=== PATIENT | female | born 1965 | race Caucasian/White ===

== ENCOUNTER 2018-12-06 19:30 | Emergency (ER) | payer BC ==
[2018-12-06 19:54] VITALS: BP 173/86; PULSE 67
[2018-12-06] MEDS ORDERED: Ketorolac 30 MG/ML SDV IVPUSH ONE (19:55)
[2018-12-06] MEDS ORDERED: Sodium Chloride 0.9% 10 ML Syringe FLUSH PRN (19:55)
[2018-12-06] MEDS ORDERED: Ondansetron 4 MG/2 ML SDV IVPUSH ONE (19:55)
[2018-12-06] MEDS ORDERED: Sodium Chloride 0.9% 1,000 ML IV ONE (19:55)
[2018-12-06] MEDS ORDERED: diphenhydrAMINE 50 MG/ML SDV IVPUSH ONE (19:55)
--- NOTE | 2018-12-06 19:56 | EDM.PDOC ---
ED HPI GENERAL MEDICAL PROBLEM - General Chief Complaint: Headache Stated Complaint: migraine Time Seen by Provider: 12/06/18 19:40 Source of Information: Reports: Patient History Limitations: Reports: No Limitations - History of Present Illness INITIAL COMMENTS - FREE TEXT/NARRATIVE: 53 YO WF presents to ER complaining of migraine headache which began yesterday. Pt reports her headache began as right sided behind her right eye and has progressed to hurting all over today. Pt reports taking her Maxalt, Zofran and Gabapentin which was prescribed for her chronic migraines by neurologist without relief. Pt reports she vomited today prompting ER visit. Pt denies neck pain, focal neurological deficits or fever/chills. Onset Date: 12/05/18 Duration: Day(s): (2) Location: Reports: Head Quality: Reports: Ache Severity: Moderate Worsens with: Reports: None Associated Symptoms: Reports: Headaches, Nausea/Vomiting. Denies: Confusion, Fever/Chills, Seizure, Syncope, Weakness Treatments [employer]: Reports: Other Medication(s) Headache Pain Score (Numeric/FACES): 9 - Related Data Allergies Allergy/AdvReac Type Severity Reaction Status Date / Time amoxicillin Allergy Hives Verified 12/06/18 19:55 sulfamethoxazole Allergy Hives Verified 12/06/18 19:55 [From Bactrim] trimethoprim [From Bactrim] Allergy Hives Verified 12/06/18 19:55 Home Meds: Home Meds Acetaminophen/Caffeine [Excedrin Tension Headache] 2 tab PO ASDIRECTED PRN 03/05 [History] Albuterol [Proventil HFA] 2 puff INH Q4H PRN 03/05/15 [History] Escitalopram [Lexapro] 10 mg PO DAILY 03/05/15 [History] Furosemide 20 mg PO DAILY PRN 03/05/15 [History] Levothyroxine 125 mcg PO ACBREAKFAST 03/05/15 [History] Levothyroxine [Sythroid] 100 mcg PO ACBREAKFAST 03/05/15 [History] Naproxen Sodium [Aleve] 220 mg PO BID PRN 03/05/15 [History] Ondansetron [Zofran] 8 mg PO Q8H PRN 03/05/15 [History] Rizatriptan [Maxalt HONING MACHINE [employer]Y OUT SETTER] 10 mg PO ASDIRECTED PRN 03/05/15 [History] ClonazePAM [KlonoPIN] 0.5 mg PO BEDTIME 12/06/18 [History] Cyanocobalamin (Vitamin B-12) [Vitamin B-12] 100 mcg PO DAILY 12/06/18 [History] DULoxetine [Cymbalta] 60 mg PO DAILY 12/06/18 [History] Erenumab-Aooe [Aimovig Autoinjector] 70 mg SUBCUT Q28D 12/06/18 [History] Gabapentin [Neurontin] 600 mg PO BID PRN 12/06/18 [History] Gabapentin [Neurontin] 900 mg PO DAILY@1900 12/06/18 [History] Magnesium Citrate 400 Mg. 600 mg PO DAILY 12/06/18 [History] Multivitamin with Minerals [Multiple Vitamin] 1 tab PO DAILY 12/06/18 [History] Past Medical History - Past Surgical History Other HEENT Surgeries/Procedures: wisdom teeth removal Other GI Surgeries/Procedures: hemorrhoid surgery ED ROS GENERAL - Review of Systems Review Of Systems: See Below Constitutional: Reports: No Symptoms HEENT: Denies: Ear Pain, Eye Pain, Hearing Loss, Vertigo, Vision Change Respiratory: Reports: No Symptoms Cardiovascular: Reports: No Symptoms Endocrine: Reports: No Symptoms GI/Abdominal: Reports: No Symptoms : Reports: No Symptoms Musculoskeletal: Reports: No Symptoms Skin: Reports: No Symptoms Neurological: Reports: Headache. Denies: Confusion, Dizziness, Numbness, Paresthesia, Trouble Speaking, Difficulty Walking, Weakness, Change in Speech Psychiatric: Reports: No Symptoms Hematologic/Lymphatic: Reports: No Symptoms Immunologic: Reports: No Symptoms - Physical Exam Exam: See Below Exam Limited By: No Limitations General Appearance: Alert, WD/WN, No Apparent Distress Throat/Mouth: Normal Inspection, Normal Lips, Normal Teeth, Normal Gums, Normal Oropharynx, Normal Voice, No Airway Compromise Head Exam: Atraumatic, Normocephalic Neck: Normal Inspection, Supple, Non-Tender, Full Range of Motion Respiratory/Chest: No Respiratory Distress, Lungs Clear, Normal Breath Sounds, No Accessory Muscle Use, Chest Non-Tender Cardiovascular: Normal Peripheral Pulses, Regular Rate, Rhythm, No Edema, No Gallop, No JVD, No Murmur, No Rub GI/Abdominal: Normal Bowel Sounds, Soft, Non-Tender, No Organomegaly, No Distention, No Abnormal Bruit, No Mass Neuro Exam (Abbreviated): Alert, Oriented, CN II-XII Intact, Normal Cognition, Normal Gait, Normal Reflexes, No Motor/Sensory Deficits Back Exam: Normal Inspection, Full Range of Motion, NT Extremities: Normal Inspection, Normal Range of Motion, Non-Tender, No Pedal Edema, Normal Capillary Refill Psychiatric: Normal Affect, Normal Mood Skin Exam: Warm, Dry, Intact, Normal Color, No Rash Course - Vital Signs Last Recorded V/S: Last Vital Signs Temp 36.9 C 12/06/18 19:42 Pulse 67 12/06/18 19:42 Resp 20 12/06/18 19:42 BP 173/86 H 12/06/18 19:42 Pulse Ox 95 12/06/18 19:42 - Orders/Labs/Meds Orders: Active Orders 24 hr Category Date Time Status Peripheral IV Care [RC] . DIRECTED Care 12/06/18 19:56 Active Sodium Chloride 0.9% [Saline Flush] Med 12/06/18 19:55 Active 10 ml FLUSH Q8HR PRN Peripheral IV Insertion Adult [OM.PC] Routine Oth 12/06/18 19:55 Ordered Medication Orders Sodium Chloride (Saline Flush) 10 ml FLUSH Q8HR PRN PRN Reason: keep vein open Meds: Medications Generic Name Dose Route Start Last Admin Trade Name Freq PRN Reason Stop Dose Admin Sodium Chloride 10 ml 12/06/18 19:55 Saline Flush FLUSH Q8HR PRN keep vein open Discontinued Medications Generic Name Dose Route Start Last Admin Trade Name Freq PRN Reason Stop Dose Admin Diphenhydramine HCl 50 mg 12/06/18 19:55 12/06/18 20:21 Benadryl IVPUSH 12/06/18 19:56 50 mg ONETIME ONE Administration Sodium Chloride 1,000 mls @ 999 mls/hr 12/06/18 19:55 12/06/18 20:17 Normal Saline IV 12/06/18 20:55 999 mls/hr .BOLUS ONE Administration Ketorolac Tromethamine 30 mg 12/06/18 19:55 12/06/18 20:18 Toradol IVPUSH 12/06/18 19:56 30 mg ONETIME ONE Administration Ondansetron HCl 4 mg 12/06/18 19:55 12/06/18 20:17 Zofran IVPUSH 12/06/18 19:56 4 mg ONETIME ONE Administration - Re-Assessments/Exams Free Text/Narrative Re-Assessment/Exam: 12/06/18 21:12 Pt reports pain is improved and would like to go home. Pt reports she will continue her home medications as needed and follow up with neurologist for further evaluation and treatment Departure - Departure Time of Disposition: 21:14 Disposition: Home, Self-Care 01 Condition: Good Clinical Impression: Migraine - Discharge Information Instructions: Recurrent Migraine Headache, [id number] Referrals: Mckenzie Martin MD [Physician] - Forms: ED Department Discharge Additional Instructions: 1. Discharge home 2. continue home medications as directed by your neurologist 3. follow up with neuro for further evaluation and treatment 4. return to ER for worsening symptoms 5. stay hydrated and rest - My Orders Last 24 Hours: My Active Orders 12/06/18 19:55 Sodium Chloride 0.9% [Saline Flush] 10 ml FLUSH Q8HR PRN Peripheral IV Insertion Adult [OM.PC] Routine 12/06/18 19:56 Peripheral IV Care [RC] . DIRECTED - Assessment/Plan Last 24 Hours: My Active Orders 12/06/18 19:55 Sodium Chloride 0.9% [Saline Flush] 10 ml FLUSH Q8HR PRN Peripheral IV Insertion Adult [OM.PC] Routine 12/06/18 19:56 Peripheral IV Care [RC] . DIRECTED Assessment:: 1. Migraine MOLINA Plan: 1. Discharge home 2. continue home medications as directed by your neurologist 3. follow up with neuro for further evaluation and treatment 4. return to ER for worsening symptoms 5. stay hydrated and rest
== END 2018-12-06 21:30 | disposition home or self-care (01) ==
LOC: KA.ED 19:30
DX: G43.909 Migraine, unspecified, not intractable, without status migrainosus (principal); Z88.1 Allergy status to other antibiotic agents; Z79.899 Other long term (current) drug therapy
CPT/HCPCS: 96361; 96374; 96375; 99282; J1200; J1885; J2405; J7030

== ENCOUNTER 2018-12-08 06:16 | Emergency (ER) | payer BC ==
[2018-12-08] MEDS ORDERED: Ondansetron 4 MG/2 ML SDV IVPUSH ONE (06:20)
[2018-12-08 06:26] VITALS: BP 138/63; PULSE 80
[2018-12-08] MEDS ORDERED: Ondansetron 4 MG/2 ML SDV ONE (06:47)
[2018-12-08] MEDS ORDERED: Metoclopramide 10 MG/2 ML SDV IVPUSH ONE (06:49)
[2018-12-08] MEDS ORDERED: diphenhydrAMINE 50 MG/ML SDV IVPUSH ONE (06:49)
[2018-12-08] MEDS ORDERED: Sodium Chloride 0.9% 1,000 ML IV ONE (06:49)
[2018-12-08] MEDS ORDERED: Sodium Chloride 0.9% 10 ML Syringe FLUSH PRN (06:49)
[2018-12-08] MEDS ORDERED: Ketorolac 30 MG/ML SDV IVPUSH ONE (06:49)
--- NOTE | 2018-12-08 06:51 | EDM.PDOC ---
ED HPI GENERAL MEDICAL PROBLEM - General Chief Complaint: Headache Stated Complaint: migraine Time Seen by Provider: 12/08/18 06:40 Source of Information: Reports: Patient History Limitations: Reports: No Limitations - History of Present Illness INITIAL COMMENTS - FREE TEXT/NARRATIVE: 53 YO WF presents to ER with recurrent migraine MOLINA. Pt was seen in ER 2 days ago for same complaint. Pt reports she felt better after visit although headache never completely resolved. Pt went to work last night and headache returned and was unrelieved by her home Maxalt. Pt had an appointment with neurology yesterday in [place] which she decided not to go due to drive and not feeling well enough to make the trip. Pt reports her headache began again as behind her right eye and has progressed in severity. Pt reports nausea without vomiting today. Pt denies neck pain, URI symptoms or focal neurological deficits , no fever/chills. Onset: Today Location: Reports: Head Quality: Reports: Ache Severity: Moderate Improves with: Reports: None Worsens with: Reports: None Associated Symptoms: Reports: Headaches - Related Data Allergies Allergy/AdvReac Type Severity Reaction Status Date / Time amoxicillin Allergy Hives Verified 12/08/18 06:21 sulfamethoxazole Allergy Hives Verified 12/08/18 06:21 [From Bactrim] trimethoprim [From Bactrim] Allergy Hives Verified 12/08/18 06:21 Home Meds: Home Meds Acetaminophen/Caffeine [Excedrin Tension Headache] 2 tab PO ASDIRECTED PRN 03/05 [History] Albuterol [Proventil HFA] 2 puff INH Q4H PRN 03/05/15 [History] Escitalopram [Lexapro] 10 mg PO DAILY 03/05/15 [History] Furosemide 20 mg PO DAILY PRN 03/05/15 [History] Levothyroxine 125 mcg PO ACBREAKFAST 03/05/15 [History] Levothyroxine [Sythroid] 100 mcg PO ACBREAKFAST 03/05/15 [History] Naproxen Sodium [Aleve] 220 mg PO BID PRN 03/05/15 [History] Ondansetron [Zofran] 8 mg PO Q8H PRN 03/05/15 [History] Rizatriptan [Maxalt PUBLIC HEALTH EDUCATOR] 10 mg PO ASDIRECTED PRN 03/05/15 [History] ClonazePAM [KlonoPIN] 0.5 mg PO BEDTIME 12/06/18 [History] Cyanocobalamin (Vitamin B-12) [Vitamin B-12] 100 mcg PO DAILY 12/06/18 [History] DULoxetine [Cymbalta] 60 mg PO DAILY 12/06/18 [History] Erenumab-Aooe [Aimovig Autoinjector] 70 mg SUBCUT Q28D 12/06/18 [History] Gabapentin [Neurontin] 600 mg PO BID PRN 12/06/18 [History] Gabapentin [Neurontin] 900 mg PO DAILY@1900 12/06/18 [History] Magnesium Citrate 400 Mg. 600 mg PO DAILY 12/06/18 [History] Multivitamin with Minerals [Multiple Vitamin] 1 tab PO DAILY 12/06/18 [History] Past Medical History - Past Health History Medical/Surgical History: Denies Medical/Surgical History - Past Surgical History Other HEENT Surgeries/Procedures: wisdom teeth removal Other GI Surgeries/Procedures: hemorrhoid surgery Social & Family History - Caffeine Use Caffeine Use: Reports: Coffee, Soda, Tea ED ROS GENERAL - Review of Systems Review Of Systems: See Below Constitutional: Denies: Fever, Chills HEENT: Reports: No Symptoms Respiratory: Reports: No Symptoms Cardiovascular: Reports: No Symptoms Endocrine: Reports: No Symptoms GI/Abdominal: Reports: Nausea : Reports: No Symptoms Musculoskeletal: Reports: No Symptoms Skin: Reports: No Symptoms Neurological: Reports: Headache Psychiatric: Reports: No Symptoms Hematologic/Lymphatic: Reports: No Symptoms Immunologic: Reports: No Symptoms - Physical Exam Exam: See Below Exam Limited By: No Limitations General Appearance: Alert, WD/WN, No Apparent Distress Eye Exam: Bilateral Eye: EOMI, PERRL Nose: Normal Inspection, Normal Mucosa, No Blood Throat/Mouth: Normal Inspection, Normal Lips, Normal Teeth, Normal Gums, Normal Oropharynx, Normal Voice, No Airway Compromise Head Exam: Atraumatic, Normocephalic Neck: Normal Inspection, Supple, Non-Tender, Full Range of Motion Respiratory/Chest: No Respiratory Distress, Lungs Clear, Normal Breath Sounds, No Accessory Muscle Use, Chest Non-Tender Cardiovascular: Normal Peripheral Pulses, Regular Rate, Rhythm, No Edema, No Gallop, No JVD, No Murmur, No Rub GI/Abdominal: Normal Bowel Sounds, Soft, Non-Tender, No Organomegaly, No Distention, No Abnormal Bruit, No Mass Neuro Exam (Abbreviated): Alert, Oriented, CN II-XII Intact, Normal Cognition, Normal Gait, Normal Reflexes, No Motor/Sensory Deficits Extremities: Normal Inspection, Normal Range of Motion, Non-Tender, No Pedal Edema, Normal Capillary Refill Psychiatric: Normal Affect, Normal Mood Skin Exam: Warm, Dry, Intact, Normal Color, No Rash Course - Vital Signs Last Recorded V/S: Last Vital Signs Temp 35.8 C 12/08/18 06:22 Pulse 80 12/08/18 06:22 Resp 20 12/08/18 06:22 BP 138/63 12/08/18 06:22 Pulse Ox 96 12/08/18 06:22 - Orders/Labs/Meds Orders: Active Orders 24 hr Category Date Time Status Peripheral IV Care [RC] . DIRECTED Care 12/08/18 06:49 Active Sodium Chloride 0.9% [Normal Saline] 1,000 ml Med 12/08/18 06:49 Active IV .BOLUS Sodium Chloride 0.9% [Saline Flush] Med 12/08/18 06:49 Active 10 ml FLUSH Q8HR PRN Peripheral IV Insertion Adult [OM.PC] Routine Oth 12/08/18 06:49 Ordered Medication Orders Sodium Chloride (Normal Saline) 1,000 mls @ 999 mls/hr IV .BOLUS ONE Stop: 12/08/18 07:49 Last Admin: 12/08/18 07:07 Dose: 999 mls/hr Sodium Chloride (Saline Flush) 10 ml FLUSH Q8HR PRN PRN Reason: keep vein open Meds: Medications Generic Name Dose Route Start Last Admin Trade Name Freq PRN Reason Stop Dose Admin Sodium Chloride 1,000 mls @ 999 mls/hr 12/08/18 06:49 12/08/18 07:07 Normal Saline IV 12/08/18 07:49 999 mls/hr .BOLUS ONE Administration Sodium Chloride 10 ml 12/08/18 06:49 Saline Flush FLUSH Q8HR PRN keep vein open Discontinued Medications Generic Name Dose Route Start Last Admin Trade Name Freq PRN Reason Stop Dose Admin Diphenhydramine HCl 50 mg 12/08/18 06:49 12/08/18 07:08 Benadryl IVPUSH 12/08/18 06:50 50 mg ONETIME ONE Administration Ketorolac Tromethamine 30 mg 12/08/18 06:49 12/08/18 07:03 Toradol IVPUSH 12/08/18 06:50 30 mg ONETIME ONE Administration Lorazepam 1 mg 12/08/18 07:24 Ativan IVPUSH 12/08/18 07:25 ONETIME ONE Metoclopramide HCl 10 mg 12/08/18 06:49 Reglan IVPUSH 12/08/18 06:50 ONETIME ONE Ondansetron HCl Confirm 12/08/18 06:47 Zofran Administered 12/08/18 06:48 Dose 4 mg .ROUTE .STK-MED ONE Ondansetron HCl 4 mg 12/08/18 06:20 Zofran IVPUSH 12/08/18 06:21 ONETIME ONE - Radiology Interpretation Free Text/Narrative:: Pt reports pain and nausea improved and wants to go home. Pt instructed to avoid environmental triggers like lack of sleep and dehydration. Pt alert and oriented x 4 and in NAD Departure - Departure Time of Disposition: 07:48 Disposition: Home, Self-Care 01 Condition: Good Clinical Impression: Migraine - Discharge Information Instructions: Recurrent Migraine Headache, [id number] Referrals: Mckenzie Martin MD [Physician] - Forms: ED Department Discharge Additional Instructions: 1. discharge home 2. recommend calling neurologist for further recommendations and follow up for further evaluation and treatment 3. continue home medications as directed by Neuro 4. return to ER for worsening symptoms - My Orders Last 24 Hours: My Active Orders 12/08/18 06:49 Peripheral IV Care [RC] . DIRECTED Sodium Chloride 0.9% [Normal Saline] 1,000 ml IV .BOLUS Sodium Chloride 0.9% [Saline Flush] 10 ml FLUSH Q8HR PRN Peripheral IV Insertion Adult [OM.PC] Routine - Assessment/Plan Last 24 Hours: My Active Orders 12/08/18 06:49 Peripheral IV Care [RC] . DIRECTED Sodium Chloride 0.9% [Normal Saline] 1,000 ml IV .BOLUS Sodium Chloride 0.9% [Saline Flush] 10 ml FLUSH Q8HR PRN Peripheral IV Insertion Adult [OM.PC] Routine Assessment:: 1. Chronic Migraine headaches Plan: 1. discharge home 2. recommend calling neurologist for further recommendations and follow up for further evaluation and treatment 3. continue home medications as directed by Neuro 4. return to ER for worsening symptoms
[2018-12-08] MEDS ORDERED: LORazepam 2 MG/ML SDV IVPUSH ONE (07:24)
== END 2018-12-08 08:00 | disposition home or self-care (01) ==
LOC: KA.ED 06:16
DX: G43.909 Migraine, unspecified, not intractable, without status migrainosus (principal); Z88.1 Allergy status to other antibiotic agents; Z79.899 Other long term (current) drug therapy
CPT/HCPCS: 96361; 96374; 96375; 99283; J1200; J1885; J2060; J2405; J7030

== ENCOUNTER 2020-09-11 19:52 | Emergency (ER) | payer BC ==
[2020-09-11] MEDS ORDERED: HYDROmorphone 1 MG/ML Syringe IVPUSH ONE (20:43)
[2020-09-11] MEDS ORDERED: Ondansetron 4 MG/2 ML SDV IVPUSH ONE (20:44)
[2020-09-11] MEDS ORDERED: Sodium Chloride 0.9% 1,000 ML IV ONE (21:00)
[2020-09-11] MEDS ORDERED: Sodium Chloride 0.9% 1,000 ML ONE (21:12)
[2020-09-11 21:17] LABS: ANION GAP 15.6 mmol/L (5-15); CHLORIDE,CL 101 mmol/L (98-107); SODIUM,NA 139 mmol/L (136-145)
[2020-09-11] MEDS ORDERED: Iopamidol 755 Mg/ML 75 ML Bottle IVPUSH ONE (21:24)
--- NOTE | 2020-09-11 21:27 | EDM.PDOC ---
ED HPI GENERAL MEDICAL PROBLEM - General Chief Complaint: Abdominal Pain Stated Complaint: SEVERE ABDOMINAL PAIN Time Seen by Provider: 09/11/20 20:00 Source of Information: Reports: Patient History Limitations: Reports: No Limitations - History of Present Illness INITIAL COMMENTS - FREE TEXT/NARRATIVE: 55-year-old female presents to the emergency room this evening with complaints of severe abdominal pain that started sometime after midnight last night. She reports the pain is been constant and sharp. She feels like similar to menstrual cramps. She is menopausal. She denies any history hysterectomy. She not been experience any nausea or vomiting no flank pain she does have some low back pain associated with this. She she has had 2 episodes of diarrhea yesterday. She denies any vaginal discharge. She denies any hematuria. She does feel chilled but has not been experiencing fevers. She has had a cholecystectomy 20 years ago. She denies any other abdominal surgeries. Onset: Today Onset Date: 09/11/20 Onset Time: 01:00 Duration: Hour(s):, Constant Location: Reports: Abdomen, Generalized Quality: Reports: Sharp Severity: Severe Improves with: Reports: None Worsens with: Reports: None Associated Symptoms: Reports: Fever/Chills (Chills denies fever). Denies: Chest Pain, Cough, Nausea/Vomiting, Shortness of Breath - Related Data Allergies Allergy/AdvReac Type Severity Reaction Status Date / Time amoxicillin Allergy Hives Verified 09/11/20 22:44 sulfamethoxazole Allergy Hives Verified 09/11/20 22:44 [From Bactrim] trimethoprim [From Bactrim] Allergy Hives Verified 09/11/20 22:44 Home Meds: Home Meds Acetaminophen/Caffeine [Excedrin Tension Headache] 2 tab PO ASDIRECTED PRN 03/05/15 [History] Albuterol [Proventil HFA] 2 puff INH Q4H PRN 03/05/15 [History] Escitalopram [Lexapro] 10 mg PO DAILY 03/05/15 [History] Furosemide 20 mg PO DAILY PRN 03/05/15 [History] Levothyroxine 125 mcg PO ACBREAKFAST 03/05/15 [History] Levothyroxine [Sythroid] 100 mcg PO ACBREAKFAST 03/05/15 [History] Naproxen Sodium [Aleve] 220 mg PO BID PRN 03/05/15 [History] Ondansetron [Zofran] 8 mg PO Q8H PRN 03/05/15 [History] Rizatriptan [Maxalt MOSS PICKER] 10 mg PO ASDIRECTED PRN 03/05/15 [History] ClonazePAM [KlonoPIN] 0.5 mg PO BEDTIME 12/06/18 [History] Cyanocobalamin (Vitamin B-12) [Vitamin B-12] 100 mcg PO DAILY 12/06/18 [History] DULoxetine [Cymbalta] 60 mg PO DAILY 12/06/18 [History] Erenumab-Aooe [Aimovig Autoinjector] 70 mg SUBCUT Q28D 12/06/18 [History] Gabapentin [Neurontin] 600 mg PO BID PRN 12/06/18 [History] Gabapentin [Neurontin] 900 mg PO DAILY@1900 12/06/18 [History] Magnesium Citrate 400 Mg. 600 mg PO DAILY 12/06/18 [History] Multivitamin with Minerals [Multiple Vitamin] 1 tab PO DAILY 12/06/18 [History] Ciprofloxacin HCl [Cipro] 500 mg PO BID 7 Days #14 tablet 09/11/20 [Rx] Ciprofloxacin [Cipro] 250 mg PO BID #14 ml 09/11/20 [Rx] metroNIDAZOLE [Flagyl] 500 mg PO Q8H #21 tab 09/11/20 [Rx] Past Medical History - Past Health History Medical/Surgical History: Denies Medical/Surgical History Neurological History: Reports: Headaches, Chronic, Migraines - Past Surgical History Other HEENT Surgeries/Procedures: wisdom teeth removal Other GI Surgeries/Procedures: hemorrhoid surgery Social & Family History - Family History Family Medical History: No Pertinent Family History - Caffeine Use Caffeine Use: Reports: Coffee, Soda, Tea ED ROS GENERAL - Review of Systems Review Of Systems: See Below Constitutional: Reports: Chills. Denies: Fever, Diaphoresis HEENT: Reports: No Symptoms Respiratory: Reports: No Symptoms Cardiovascular: Reports: No Symptoms Endocrine: Reports: No Symptoms GI/Abdominal: Reports: Abdominal Pain, Diarrhea. Denies: Nausea, Vomiting : Denies: Discharge, Dysuria, Flank Pain, Pain Musculoskeletal: Reports: Back Pain Skin: Reports: No Symptoms Neurological: Reports: No Symptoms Psychiatric: Reports: No Symptoms Hematologic/Lymphatic: Reports: No Symptoms Immunologic: Reports: No Symptoms ED EXAM, GI/ABD - Physical Exam Exam: See Below Exam Limited By: No Limitations General Appearance: Alert, Moderate Distress, Obese Eyes: Bilateral: Normal Appearance, EOMI Ears: Hearing Grossly Normal Nose: Normal Inspection Throat/Mouth: Normal Inspection, Normal Voice, No Airway Compromise Head: Atraumatic, Normocephalic Neck: Normal Inspection, Supple, Non-Tender, Full Range of Motion Respiratory/Chest: No Respiratory Distress, Lungs Clear, Normal Breath Sounds, No Accessory Muscle Use, Chest Non-Tender Cardiovascular: Normal Peripheral Pulses, Regular Rate, Rhythm GI/Abdominal Exam: Normal Bowel Sounds, Soft, Non-Tender, No Organomegaly, No Distention, No Mass, Pelvis Stable Back Exam: Normal Inspection, Full Range of Motion. No: CVA Tenderness (L), CVA Tenderness (R), Muscle Spasm, Paraspinal Tenderness, Vertebral Tenderness Extremities: Normal Inspection, Normal Range of Motion, Non-Tender, No Pedal Edema, Normal Capillary Refill Neurological: Alert, Oriented, CN II-XII Intact, Normal Cognition, No Motor/Sensory Deficits Psychiatric: Normal Affect, Tearful Skin Exam: Warm, Dry, Intact, Normal Color, No Rash Lymphatic: No Adenopathy Course - Orders/Labs/Meds Orders: Active Orders 24 hr Category Date Time Status Abdomen Pelvis w Cont [CT] Stat Exams 09/11/20 20:44 Taken Sodium Chloride 0.9% [Normal Saline] 50 ml Med 09/11/20 21:30 Active IV ASDIRECTED Medication Orders Sodium Chloride (Normal Saline) 50 mls @ 200 mls/hr IV ASDIRECTED BREANNA Last Admin: 09/11/20 21:45 Dose: 200 mls/hr Documented by: CAMRON Labs: Laboratory Tests 09/11/20 09/11/20 09/11/20 Range/Units 20:40 20:40 21:40 WBC 10.48 H (5.00-10.00) 10^3/uL RBC 4.13 (3.80-5.50) 10^6/uL Hgb 13.5 (12.0-16.0) g/dL Hct 38.9 (37.0-47.0) % MCV 94.2 H (82.0-92.0) fL MCH 32.7 H (27.0-31.0) pg MCHC 34.7 (32.0-36.0) g/dL RDW 12.7 (11.5-14.5) % Plt Count 320 (150-400) 10^3/uL MPV 9.3 (7.4-10.4) fL Immature Gran % (Auto) 0.2 (0.0-5.0) % Neut % (Auto) 76.3 H (50.0-70.0) % Lymph % (Auto) 11.6 L (20.0-40.0) % [place] % (Auto) 8.2 H (2.0-8.0) % Eos % (Auto) 3.3 H (1.0-3.0) % Baso % (Auto) 0.4 (0.0-1.0) % Neut # (Auto) 7.99 H (2.50-7.00) 10^3/uL Lymph # (Auto) 1.22 (1.00-4.00) 10^3/uL [place] # (Auto) 0.86 H (0.10-0.80) 10^3/uL Eos # (Auto) 0.35 H (0.10-0.30) 10^3/uL Baso # (Auto) 0.04 (0.00-0.10) 10^3/uL Immature Gran # (Auto) 0.02 (0.00-0.50) 10^3/uL Sodium 139 (136-145) mmol/L Potassium 4.0 (3.5-5.1) mmol/L Chloride 101 (98-107) mmol/L Carbon Dioxide 26.4 (21.0-32.0) mmol/L Anion Gap 15.6 H (5-15) mmol/L BUN 18 (7-18) mg/dL Creatinine 0.95 (0.51-1.17) mg/dL Est Cr Clr Drug Dosing TNP Estimated GFR (MDRD) > 60 mL/min Glucose 100 (70-140) mg/dL Calcium 8.4 L (8.7-10.3) mg/dL Total Bilirubin 1.0 (0.2-1.0) mg/dL AST 25 (15-37) U/L ALT 51 (14-63) U/L Alkaline Phosphatase 90 (46-116) U/L Total Protein 7.3 (6.4-8.2) g/dL Albumin 3.95 (3.40-5.00) g/dL Specimen Type Urincc Urine Color Yellow (YELLOW) Urine Appearance Clear (CLEAR) Urine pH 8.5 (5.0-9.0) Ur Specific [facility] 1.020 (1.005-1.030) Urine Protein Negative (NEGATIVE) mg/dL Urine Glucose (UA) Negative (NEGATIVE) mg/dL Urine Ketones Negative (NEGATIVE) mg/dL Urine Occult Blood Negative (NEGATIVE) Urine Nitrite Negative (NEGATIVE) Urine Bilirubin Negative (NEGATIVE) Urine Urobilinogen 0.2 (0.2-1.0) E.U./dL Ur Leukocyte Esterase Negative (NEGATIVE) Urine RBC 0-5 (0-5) /HPF Urine WBC 0-5 (0-5) /HPF Ur Epithelial Cells Few /LPF Urine Bacteria Few (NONE TO FEW) /HPF Meds: Medications Generic Name Dose Route Start Last Admin Trade Name Freq PRN Reason Stop Dose Admin Sodium Chloride 50 mls @ 200 mls/hr 09/11/20 21:30 09/11/20 21:45 Normal Saline IV 200 mls/hr ASDIRECTED BREANNA Administration Discontinued Medications Generic Name Dose Route Start Last Admin Trade Name Freq PRN Reason Stop Dose Admin Hydrocodone Bitart/Acetaminophen 2 tab 09/11/20 23:03 Acetaminophen/Hydrocodone 325-5 Mg Tab PO 09/11/20 23:04 ONETIME ONE Hydrocodone Bitart/Acetaminophen Confirm 09/11/20 23:04 Acetaminophen/Hydrocodone 325-5 Mg Tab Administered 09/11/20 23:05 Dose 2 tab .ROUTE .STK-MED ONE Ciprofloxacin 500 mg 09/11/20 22:45 09/11/20 22:51 Ciprofloxacin 500 Mg Tab PO 09/11/20 22:46 500 mg ONETIME ONE Administration Hydromorphone HCl 1 mg 09/11/20 20:43 09/11/20 21:01 Hydromorphone 1 Mg/Ml Syringe IVPUSH 09/11/20 20:44 1 mg ONETIME ONE Administration Sodium Chloride Confirm 09/11/20 21:12 Normal Saline Administered 09/11/20 21:13 Dose 1,000 mls @ as directed .ROUTE .STK-MED ONE Iopamidol 75 ml 09/11/20 21:24 09/11/20 21:45 Iopamidol 755 Mg/Ml 75 Ml Bottle IVPUSH 09/11/20 21:25 75 ml ONETIME ONE Administration Metronidazole 500 mg 09/11/20 22:48 09/11/20 22:51 Metronidazole 500 Mg Tab PO 09/11/20 22:49 500 mg ONETIME ONE Administration Ondansetron HCl 4 mg 09/11/20 20:44 09/11/20 20:53 Ondansetron 4 Mg/2 Ml Sdv IVPUSH 09/11/20 20:45 4 mg ONETIME ONE Administration - Radiology Interpretation Free Text/Narrative:: CT abdomen and pelvis with contrast Findings: Clear lung bases. Status post cholecystectomy. Subcentimeter low attenuating lesions in the left kidney which is too small to characterize. Unremarkable bladder. The other solid organs are unremarkable. No bowel dilation. Normal appendix is identified. Colonic diverticulosis. There is distal segment wall thickening and inflamed diverticuli and pericolonic stranding which is predominantly to the right of the midline. No fluid collection or free air. Normal size abdominal aorta with a trace of calcified atherosclerotic disease. No lymphadenopathy. Trace of pelvis ascites. No acute osseous abnormality. Grade 1 listhesis of L4 on 5 with moderate central canal stenosis degenerative. Impression: Acute uncomplicated diverticulitis - Re-Assessments/Exams Free Text/Narrative Re-Assessment/Exam: 09/12/20 00:18 Was given 1 L of IV fluids. 1 mg of IV Dilaudid and 4 mg of IV Zofran. The time of her discharge her pain was 0 out of 10. Departure - Departure Time of Disposition: 23:08 Disposition: Home, Self-Care 01 Condition: Good Clinical Impression: Diverticulitis large intestine Qualifiers: Diverticulitis bleeding: without bleeding Diverticulitis complication: without perforation or abscess Qualified Code(s): K57.32 - Diverticulitis of large intestine without perforation or abscess without bleeding - Discharge Information Prescriptions: Ciprofloxacin HCl [Cipro] 500 mg PO BID 7 Days #14 tablet Ciprofloxacin [Cipro] 250 mg PO BID #14 ml metroNIDAZOLE [Flagyl] 500 mg PO Q8H #21 tab Instructions: Diverticulitis, [id number], Abdominal Pain, Adult, [id number] Referrals: Adriana Williamson [employer] [Primary Care Provider] - Forms: ED Department Discharge Care Plan Goals: 1. Cipro 750 mg 1 p.o. twice daily for 7 days 2. Flagyl 500 mg every 8 hours for 7 days 3. Continue with oral hydration 4. Avoid nonsteroidal anti-inflammatory medications. 5. Rest 6. Follow-up with your provider next week if you do not feel your abdominal symptoms are improving 7. Hydrocodone 5/325 1 p.o. every 8 hours as needed for pain #5 prescription. 2 were sent home with the patient joanna. - My Orders Last 24 Hours: My Active Orders 09/11/20 20:44 Abdomen Pelvis w Cont [CT] Stat 09/11/20 21:30 Sodium Chloride 0.9% [Normal Saline] 50 ml IV ASDIRECTED - Assessment/Plan Last 24 Hours: My Active Orders 09/11/20 20:44 Abdomen Pelvis w Cont [CT] Stat 09/11/20 21:30 Sodium Chloride 0.9% [Normal Saline] 50 ml IV ASDIRECTED Assessment:: Acute uncomplicated diverticulitis Plan: 1. Cipro 500 mg 1 p.o. twice daily for 7 days 2. Flagyl 500 mg every 8 hours for 7 days 3. Continue with oral hydration 4. Avoid nonsteroidal anti-inflammatory medications. 5. Rest 6. Follow-up with your provider next week if you do not feel your abdominal symptoms are improving 7. Hydrocodone 5/325 1 p.o. every 8 hours as needed for pain #5 prescription. 2 were sent home with the patient joanna.
[2020-09-11] MEDS ORDERED: Sodium Chloride 0.9% 50 ML IV SCH (21:30)
[2020-09-11] MEDS ORDERED: Ciprofloxacin 500 MG Tab PO ONE (22:45)
[2020-09-11] MEDS ORDERED: metroNIDAZOLE 500 MG Tab PO ONE (22:48)
[2020-09-11] MEDS ORDERED: Acetaminophen/HYDROcodone 325-5 MG Tab PO ONE (23:03)
[2020-09-11] MEDS ORDERED: Acetaminophen/HYDROcodone 325-5 MG Tab ONE (23:04)
[2020-09-12 02:43] VITALS: BP 161/89; PULSE 102
--- NOTE | 2020-09-12 07:52 | CT ---
[id number] CT/CT Abdomen Pelvis W IV EXAM: ABDOMEN AND PELVIS CT WITH CONTRAST INDICATION: Abdominal pain. COMPARISON: December 19, 2006. DISCUSSION: There are scattered diverticula of the colon. In the mid to distal sigmoid colon there is a segment of wall thickening and surrounding inflammatory changes compatible with acute diverticulitis. No drainable abscess or remote free air. Prior cholecystectomy with mild chronic intrahepatic and extrahepatic bile duct dilation. A subcentimeter hypodensity in the left kidney is too small to further characterize. Mild splenomegaly. Degenerative changes in the spine and hips. Grade 1 degenerative L4-L5 spondylolisthesis. The pancreas, adrenal glands, right kidney, small bowel, and the appendix are normal in appearance. IMPRESSION: 1. Acute uncomplicated diverticulitis. Charles Rhodes MD 09/12/20 0751 Thank you for allowing us to participate in the care of your patient.
== END 2020-09-11 23:20 | disposition home or self-care (01) ==
LOC: KA.ED 19:52
DX: K57.32 Diverticulitis of large intestine without perforation or abscess without bleeding (principal); Z88.0 Allergy status to penicillin; Z88.1 Allergy status to other antibiotic agents
CPT/HCPCS: 74177; 80053; 81001; 85025; 96374; 96375; 99284; A9270; J1170; J2405; J7030; Q9967; 99283

== ENCOUNTER 2021-10-17 11:04 | Emergency (ER) | payer BC ==
[2021-10-17 11:52] VITALS: BP 148/81; PULSE 63
== END 2021-10-17 11:55 | disposition home or self-care (01) ==
LOC: KA.ED 11:04
DX: S63.285A Dislocation of proximal interphalangeal joint of left ring finger, initial encounter (principal); E03.9 Hypothyroidism, unspecified; E66.9 Obesity, unspecified; Z68.30 Body mass index [BMI] 30.0-30.9, adult; Z88.0 Allergy status to penicillin; Z88.1 Allergy status to other antibiotic agents; Z79.899 Other long term (current) drug therapy; W18.39XA Other fall on same level, initial encounter
CPT/HCPCS: 26770; 28660; 73140-F3; 99283; 99283-25